=== PATIENT | male | born 1965 | race Two or more races ===

== ENCOUNTER 2022-07-06 07:06 | Outpatient (CLI) | payer MEDICARE, MEDICAID | END 2022-07-06 23:59 | disposition home or self-care (01) | LOC: LAB 07:06 | PROVIDERS: ATTEND Surgery Vascular Surgery | DX: Z75.3 Unavailability and inaccessibility of health-care facilities (principal) | CPT/HCPCS: U0003 ==

== ENCOUNTER 2022-07-14 13:12 | Day surgery (SDC) | payer MEDICARE, OTHER ==
[~2022-07-14 13:12] MED LIST: ANESTHESIA TRAY IN PYXIS 1 EA TRAY MC ONE; BUPIVACAINE 0.25% 75 MG/30 ML VIAL ONE; CELLULOSE,OXIDIZED 1 EACH EACH MC ONE; LIDOCAINE HCL/MPF 1% 30 ML VIAL IJ ONE
--- NOTE | 2022-07-14 13:45 | NUR ---
RN NOTE PT ARRIVED, WENT TO ER FOR ADMISSION
--- NOTE | 2022-07-14 14:00 | NUR ---
DENTAL HYGIENIST NOTE PT ARRIVED TO THE UNIT VIA WHEELCHAIR. A/O X4. PT ADMITTED FOR RIGHT UPPER EXTREMITY ARTERIOVENOUS FISTULA REVISION. PMHX OF DM, HTN. PT VACCINATED FOR [employer], PFIZER, VACCINATED THIS SEASON FOR FLU VACCINE. ORIENTED PATIENT TO ROOM SET UP AND EDUCATED PATIENT ON THE USE OF CALL LIGHT. VS TAKEN, STABLE, BP 146/80, P 73, RR 18, TEMP 97.5, O2 SAT 96% ON RA. NO KNOWN ALLERGY. SKIN ASSESSMENT DONE. BELONGINGS CHECKED.
[2022-07-14] MEDS ORDERED: CLON0.1T PO (14:02)
[2022-07-14] MEDS ORDERED: MORP10SO PO (14:02)
[2022-07-14] MEDS ORDERED: FOLI0.8T2 PO (14:02)
[2022-07-14] MEDS ORDERED: GABA-532 PO (14:02)
[2022-07-14] MEDS ORDERED: HYDR100T27 PO (14:02)
[2022-07-14] MEDS ORDERED: BACL10TA PO (14:02)
[2022-07-14] MEDS ORDERED: SENN-18 PO (14:02)
[2022-07-14] MEDS ORDERED: TRAM50TA2 PO (14:02)
[2022-07-14] MEDS ORDERED: ERGO500093 PO (14:02)
[2022-07-14] MEDS ORDERED: ATOR40TA PO (14:02)
[2022-07-14] MEDS ORDERED: ONDA4TAB5 PO (14:02)
[2022-07-14] MEDS ORDERED: ASPI-1420 PO (14:02)
[2022-07-14] MEDS ORDERED: CARV25TA2 PO (14:02)
[2022-07-14] MEDS ORDERED: TAMS-12 PO (14:02)
[2022-07-14] MEDS ORDERED: VALS80TA2 PO (14:02)
[2022-07-14] MEDS ORDERED: CHOL100043 PO (14:02)
--- NOTE | 2022-07-14 14:30 | NUR ---
RN NOTE COVID19, CBC, CMP, CHEST X-RAY, EKG ORDERED. OR TEAM CAME TO [employer] DEVELOPER THE PATIENT. GOT CONSENTS FROM THE PATIENT. PREPARING PATIENT FOR THE SURGERY.
--- NOTE | 2022-07-14 14:45 | NUR ---
RN NOTE COVID19 TEST DONE, LAB TEAM BY BEDSIDE TO DRAW BLOOD FROM THE PATIENT.
[2022-07-14 15:04] LABS: BASOPHILS % (AUTO) 0.3 % (0.0-2.0); EOSINOPHILS % (AUTO) 0.7 % (0.0-6.0); HEMATOCRIT 35 % (39-51); HEMOGLOBIN 11.1 g/dL (13.5-17.5); LYMPHOCYTES # (AUTO) 1.9 K/uL (0.8-4.8); LYMPHOCYTES % (AUTO) 39.2 % (20.0-44.0); MEAN CORPUSCULAR HGB CONC 32 g/dl (31.0-36.0); MEAN CORPUSCULAR VOLUME 101 fL (80-96); MONOCYTES # (AUTO) 0.3 K/uL (0.1-1.30); MONOCYTES % (AUTO) 6.2 % (2.0-12.0); NEUTROPHILS # (AUTO) 2.7 K/uL (1.8-8.9); NEUTROPHILS % (AUTO) 53.6 % (43.0-81.0); PLATELET COUNT (AUTO) 68 K/uL (150-450); RED BLOOD CELL COUNT(AUTO) 3.48 MIL/uL (4.5-6.0)
--- NOTE | 2022-07-14 15:15 | NUR ---
RN NOTE OR CALLED, DR VASQUEZ CANCELLED SURGERY. ORDERED PT GOES BACK TO SNF ([facility]). DR VASQUEZ OFFICE WILL RE SCHEDULE THE SURGERY AND PROVIDE THE TIME TO THE PATIENT.
[2022-07-14 15:23] LABS: CALCIUM, SERUM 8.6 mg/dL (8.5-10.1); POTASSIUM 4.6 mmol/L (3.5-5.1)
--- NOTE | 2022-07-14 15:30 | NUR ---
RN NOTE CALLED [facility], MADE AWARE OF PT IS GOING BACK THERE, FACILITY PROVIDED TRANSPORTATION FOR THE PATIENT. INSTRUCTED CAREGIVER AT FACILITY TO CALL DR VASQUEZ OFFICE AND GET FOLLOW UP SURGERY FROM THE OFFICE. RECEIVED ABNORMAL LAB, CREATININE 9.5, NOTIFIED NURSE AT SNF TO FOLLOW UP FOR ABNORMAL LAB AND CALL OFFICE TO GET THE NEW DATE. SPOKE WITH DAQUAN BOWENS AT THE FACILITY.
[2022-07-14 15:40] LABS: CREATININE 9.5 mg/dL (0.6-1.3)
[2022-07-14] MEDS ORDERED: PROPOFOL 200 MG/20 ML VIAL IV ONE (16:29)
--- NOTE | 2022-07-14 16:30 | NUR ---
RN NOTE PT LEFT UNIT VIA TRANSPORTATION VIA WHEELCHAIR WITH NO ACUTE DISTRESS. NO IV ACCESS. CHARGE NURSE AWARE.
[2022-07-14 16:35] LABS: LYMPHOCYTES % (MANUAL) 44 % (16-48); MONOCYTES % (MANUAL) 8 % (0-11.0); NEUTROPHILS % (MANUAL) 48 (42-76)
--- NOTE | 2022-07-14 17:35 | NUR ---
RN NOTE FAXED THE LAB RESULT TO THE FACILITY PER NURSE REQUEST AT THIS TIME.
== END 2022-07-14 16:00 ==
LOC: DS 13:12 → UNDOADMIN 13:17 → MED 13:17 → DS 16:00 → UNDODISIN 16:30
PROVIDERS: ATTEND Surgery Vascular Surgery
DX: Z01.818 Encounter for other preprocedural examination (principal); N18.6 End stage renal disease; Z53.8 Procedure and treatment not carried out for other reasons; Z20.822 Contact with and (suspected) exposure to COVID-19
CPT/HCPCS: 36415; 71045-TC; 80048-TC; 85025-TC; G0378; J1644; J2704; J3490; J7030

== ENCOUNTER 2022-08-04 11:41 | Day surgery (SDC) | payer MEDICARE, OTHER ==
[~2022-08-04] VITALS: Ht 177.8 cm; Wt 108.9 kg
[~2022-08-04 11:41] MED LIST changes: -ANESTHESIA TRAY IN PYXIS 1 EA TRAY MC ONE; +ASPI-1420 PO; +ATOR40TA PO; +BACL10TA PO; -BUPIVACAINE 0.25% 75 MG/30 ML VIAL ONE; +CARV25TA2 PO; -CELLULOSE,OXIDIZED 1 EACH EACH MC ONE; +CHOL100043 PO; +CLON0.1T PO; +ERGO500093 PO; +FOLI0.8T2 PO; +GABA-532 PO; +HYDR100T27 PO; -LIDOCAINE HCL/MPF 1% 30 ML VIAL IJ ONE; +MORP10SO PO; +ONDA4TAB5 PO; +SENN-18 PO; +TAMS-12 PO; +TRAM50TA2 PO; +VALS80TA2 PO
[2022-08-04] MEDS ORDERED: CELLULOSE,OXIDIZED 1 EACH EACH MC ONE (11:55)
[2022-08-04] MEDS ORDERED: BUPIVACAINE 0.25% 75 MG/30 ML VIAL ONE (11:55)
[2022-08-04] MEDS ORDERED: LIDOCAINE 1% INJ 50 ML MDV IJ ONE (11:55)
[2022-08-04] MEDS ORDERED: CELLULOSE,OXIDIZED 1 EA PACK MC ONE (11:56)
[2022-08-04] MEDS ORDERED: COLL30OI TP (12:51)
[2022-08-04] MEDS ORDERED: ASPI-1169 PO (12:51)
[2022-08-04] MEDS ORDERED: ZINC50TA69 PO (12:51)
[2022-08-04] MEDS ORDERED: ASCO-340 PO (12:51)
[2022-08-04] MEDS ORDERED: DIVA250T PO (12:51)
[2022-08-04] MEDS ORDERED: MULT-447 PO (12:51)
[2022-08-04] MEDS ORDERED: AMIN30LI2 PO (12:51)
[2022-08-04] MEDS ORDERED: SILV20CR13 TP (12:51)
[2022-08-04] MEDS ORDERED: ACET-868 PO (12:51)
[2022-08-04] MEDS ORDERED: MEMA10TA PO ×2 (12:51)
[2022-08-04] MEDS ORDERED: POVI3780 TP (12:51)
[2022-08-04] MEDS ORDERED: NUTR1PAC14 PO (12:51)
[2022-08-04 13:13] VITALS: BP 124/76
[2022-08-04 14:01] LABS: BASOPHILS % (AUTO) 0.3 % (0.0-2.0); EOSINOPHILS % (AUTO) 1.5 % (0.0-6.0); HEMATOCRIT 30 % (39-51); HEMOGLOBIN 9.9 g/dL (13.5-17.5); LYMPHOCYTES # (AUTO) 1.7 K/uL (0.8-4.8); LYMPHOCYTES % (AUTO) 26.2 % (20.0-44.0); MEAN CORPUSCULAR HGB CONC 33 g/dl (31.0-36.0); MEAN CORPUSCULAR VOLUME 98 fL (80-96); MONOCYTES # (AUTO) 0.5 K/uL (0.1-1.30); MONOCYTES % (AUTO) 8.1 % (2.0-12.0); NEUTROPHILS # (AUTO) 4.1 K/uL (1.8-8.9); NEUTROPHILS % (AUTO) 63.9 % (43.0-81.0); PLATELET COUNT (AUTO) 88 K/uL (150-450); RED BLOOD CELL COUNT(AUTO) 3.09 MIL/uL (4.5-6.0); WHITE BLOOD COUNT (AUTO) 6.5 K/uL (4.3-11.0)
[2022-08-04 14:17] LABS: CALCIUM, SERUM 7.9 mg/dL (8.5-10.1); POTASSIUM 4.9 mmol/L (3.5-5.1)
[2022-08-04 14:19] LABS: CREATININE 8.6 mg/dL (0.6-1.3)
--- NOTE | 2022-08-04 14:42 | NUR ---
RN MS NOTES PT PICKED UP FOR SURGERY IN STABLE CONDITION.
[2022-08-04] MEDS ORDERED: IOHEXOL 240MG/ML 50 ML IV ONE (15:20)
[2022-08-04] MEDS ORDERED: SEVOFLURANE 250 ML BOTTLE IH ONE (16:13)
[2022-08-04 17:28] LABS: BAND % (MANUAL) 1 % (0.0-5.0); EOSINOPHILS % (MANUAL) 2 % (0-4); LYMPHOCYTES % (MANUAL) 16 % (16-48); MONOCYTES % (MANUAL) 11 % (0-11.0); NEUTROPHILS % (MANUAL) 69 (42-76); REACTIVE LYMPHOCYTES 1 % (0-0)
[2022-08-04 18:00] VITALS: BP 114/76
[2022-08-04] MEDS ORDERED: ACETAMINOPHEN 325 MG TABLET ONE (18:17)
[2022-08-04] MEDS ORDERED: ACETAMINOPHEN 325 MG TABLET PO PRN (18:30)
[2022-08-04 18:40] VITALS: BP 114/72
--- NOTE | 2022-08-04 18:40 | NUR ---
PATIENT BACK IN UNIT FROM [facility] REVISION SURGERY AT 1840. PROCEDURE DONE AT R UPPER EXTREMITY. ACCESS SITE COVERED WITH DRESSING. BLOOD STAIN VISIBLE BUT NORMAL. TYLENOL 650 MG FOR PAIN EVERY 6 HRS. DISCHARGE ORDER PER MD. VITAL SIGNS STABLE 114/72 PULSE 68 SATURATING WELL AT 98% ON ROOM AIR. REPORT GIVEN TO NICHOLAS BUTT AT [facility]. TRANSPORTATION ARRANGED AT 2000 VIA AMBULANCE.
[2022-08-04 20:11] VITALS: BP 120/73
== END 2022-08-04 18:00 | disposition home or self-care (01) ==
LOC: DS 11:41 → MED 12:03 → UNDOADMIN 12:03 → DS 18:00 → UNDODISIN 20:55
PROVIDERS: ATTEND Surgery Vascular Surgery
DX: T82.590A Other mechanical complication of surgically created arteriovenous fistula, initial encounter (principal); I12.0 Hypertensive chronic kidney disease with stage 5 chronic kidney disease or end stage renal disease; N18.6 End stage renal disease; Z99.2 Dependence on renal dialysis; Y82.8 Other medical devices associated with adverse incidents
CPT/HCPCS: 36832; 73060; 85025; 80048; 85730; 36415; 86850; 82962 ×2; J2704; J3490 ×3; J0330; J1644; A4649; Q9966; A6209 ×2; G0378